=== PATIENT | female | born 1960 | race Caucasian/White ===

== ENCOUNTER 2016-09-05 12:44 | Emergency (ER) | payer BC | END 2016-09-05 14:22 | disposition home or self-care (01) | LOC: FASTR 12:44 | DX: M25.561 Pain in right knee (principal); Z79.899 Other long term (current) drug therapy; Z79.01 Long term (current) use of anticoagulants; E78.00 Pure hypercholesterolemia, unspecified; E07.9 Disorder of thyroid, unspecified; K21.9 Gastro-esophageal reflux disease without esophagitis ==